=== PATIENT | male | born 1975 | race Caucasian/White ===

== ENCOUNTER 2019-11-24 02:10 | Observation (INO) ==
[2019-11-24] MEDS ORDERED: GI Cocktail 40 ML EACH PO ONE (02:32)
[2019-11-24] MEDS ORDERED: 0.9 % Sodium Chloride 1,000 ML IV ONE (02:32)
[2019-11-24 02:46] LABS: Basophils # 0.1 K/mcL (0.0-0.2); Basophils % 0.5 %; Eosinophils # 0.2 K/mcL (0.0-0.6); Eosinophils % 2.1 %; Hematocrit 46.7 % (37.5-50.1); Hemoglobin 15.9 g/dL (12.9-16.9); Immature Granulocytes % 0.3 % (0-4); Lymphocytes # 3.1 K/mcL (0.6-4.6); Lymphocytes % 28.2 %; Mean Corpuscular Hemoglobin 31.2 pg (28.0-33.3); Mean Corpuscular Volume 91.6 fL (83.0-100.0); Mean Platelet Volume 10.5 fL (9.4-12.4); Monocytes # 0.8 K/mcL (0.0-1.3); Monocytes % 7.2 %; Neutrophils # 6.8 K/mcL (1.6-8.9); Platelet Count 149 K/mcL (140-400); Segmented Neutrophils % 61.7 %
[2019-11-24 02:57] LABS: Alanine Aminotransferase 20 Units/L (7-52); Albumin 4.4 g/dL (3.5-5.7); Albumin/Globulin Ratio 1.4 (1.1-2.2); Alkaline Phosphatase 112 Units/L (34-104); Aspartate Amino Transferase 13 Units/L (13-39); BUN/Creatinine Ratio 12 (6-26); Bilirubin,Direct 0.1 mg/dL (0.0-0.2); Bilirubin,Indirect 0.3 mg/dL (0.0-1.0); Bilirubin,Total 0.4 mg/dL (0.3-1.0); Blood Urea Nitrogen 11 mg/dL (6-20); Calcium 9.6 mg/dL (8.6-10.3); Carbon Dioxide 24 mEq/L (23-29); Chloride 104 mEq/L (98-107); Globulin 3.1 g/dL (2.4-3.5); Glucose 121 mg/dL (70-105); Lipase 269 Units/L (11-82); Osmolality,Calculated 283 (280-300); Sodium 136 mEq/L (136-145); Total Protein 7.5 g/dL (6.4-8.9); eGFR For African Americans > 60 (> 60); eGFR For Non-African Americans > 60 (> 60)
[2019-11-24] MEDS ORDERED: Isovue-370 500 ML BOTTLE IVP ONE (02:57)
[2019-11-24] MEDS ORDERED: Morphine Sulfate 2 MG/ML SYRINGE IVP ONE (04:08)
[2019-11-24] MEDS ORDERED: Ondansetron 4 MG/2 ML VIAL IVP PRN (04:40)
[2019-11-24] MEDS ORDERED: Naloxone 0.4 MG/ML INJ IVP PRN (04:40)
[2019-11-24 05:00] LABS: Chol/HDL Ratio 4.8 (0-4.9); Cholesterol 159 mg/dL (< 200); HDL Cholesterol 33 mg/dL (40-59); LDL Cholesterol,Calculated 94 mg/dL (< 100); Triglycerides 158 mg/dL (< 150)
[2019-11-24] MEDS: Ringers Solution, Lactated 1,000 ML IVC SCH ×3 (05:02→16:16)
[2019-11-24 05:56] LABS: Bilirubin,Urine Negative (Negative); Blood,Urine Trace-intact (Negative); Clarity,Urine Clear (Clear); Color,Urine Yellow (Yellow); Glucose,Urine (UA) Normal (Normal); Ketones,Urine Negative (Negative); Leukocyte Esterase,Urine Negative (Negative); Nitrite,Urine Negative (Negative); Protein,Urine Negative (Neg-Trace); Urobilinogen,Urine Normal (Normal)
[2019-11-24 06:05] LABS: WBC,Urine 0-3 per hpf (0-3)
[2019-11-24] MEDS ORDERED: hydrOXYzine pamoate 25 MG CAPSULE PO PRN (09:25)
[2019-11-24] MEDS: Aspirin Enteric Coated 81 MG Tablet PO SCH (12:34)
[2019-11-24] MEDS: lisinopriL 10 MG TABLET PO SCH (12:34)
[2019-11-25] MEDS: Ringers Solution, Lactated 1,000 ML IVC SCH ×2 (00:10→08:55)
[2019-11-25 07:39] LABS: BUN/Creatinine Ratio 10 (6-26); Blood Urea Nitrogen 7 mg/dL (6-20); Carbon Dioxide 23 mEq/L (23-29); Chloride 107 mEq/L (98-107); Glucose 99 mg/dL (70-105); Osmolality,Calculated 282 (280-300); Potassium 4.3 mEq/L (3.5-5.1); Sodium 137 mEq/L (136-145); eGFR For African Americans > 60 (> 60); eGFR For Non-African Americans > 60 (> 60)
[2019-11-25 08:04] VITALS: BP 112/62
[2019-11-25] MEDS: Aspirin Enteric Coated 81 MG Tablet PO SCH (08:54)
[2019-11-25] MEDS: lisinopriL 10 MG TABLET PO SCH (08:54)
[2019-11-25 09:46] LABS: Phosphorous 2.9 mg/dL (2.7-4.5)
== END 2019-11-25 12:56 | disposition home or self-care (01) ==
LOC: EMEROOARM 02:10 → 3BNU 02:10 → SUATTDRO 04:32 → 3BNU 04:54
PROVIDERS: ADMIT Internal Medicine; ATTEND Internal Medicine